=== PATIENT | female | born 1970 | race Caucasian/White ===

== ENCOUNTER 2019-01-26 18:57 | Observation (INO) | payer SELFPAY ==
[2019-01-26] MEDS ORDERED: Acetaminophen 500 MG TAB ONE (19:13)
[2019-01-26] MEDS ORDERED: Morphine 4 MG/ML VIAL ONE (19:40)
[2019-01-26] MEDS ORDERED: Ondansetron PF 4 MG/2 ML Vial ONE (19:40)
[2019-01-26] MEDS ORDERED: Senokot S 8.6-50 MG TAB PO PRN (21:00)
[2019-01-26] MEDS ORDERED: Sodium Chloride 0.9% 1,000 ML IV SCH (21:01)
[2019-01-26] MEDS ORDERED: Acetaminophen 325 MG TAB PO PRN ×2 (21:01→21:30)
[2019-01-26] MEDS ORDERED: Ondansetron ODT 4 MG TAB SL PRN (21:01)
[2019-01-26] MEDS ORDERED: Ondansetron PF 4 MG/2 ML Vial IVP PRN ×2 (21:01→21:30)
[2019-01-26 21:05] VITALS: BMI 28.5
[2019-01-26] MEDS ORDERED: Ondansetron ODT 4 MG TAB PO PRN (21:30)
[2019-01-26] MEDS ORDERED: Zolpidem Tartrate 5 MG TAB PO PRN (21:30)
[2019-01-26] MEDS ORDERED: HYDROcodone/Acetaminophen 5/325 mg Tablet PO PRN (21:30)
[2019-01-26] MEDS ORDERED: Nitroglycerin 0.4 MG TAB (25 Tab Bottle) PO PRN (21:30)
[2019-01-26] MEDS ORDERED: Bisacodyl 10 MG SUPP PR PRN (21:30)
[2019-01-26] MEDS ORDERED: Loperamide HCl 2 MG CAP PO PRN (21:30)
[2019-01-26] MEDS: Nitroglycerin 2% Ointment 1 INCH/1 GM Packet TOP SCH (22:13)
[2019-01-27] MEDS ORDERED: Lorazepam 1 MG TAB PO PRN (01:26)
--- NOTE | 2019-01-27 02:01 | HP ---
PRIMARY CARE PHYSICIAN: Dr. Talita Langston. The patient is seen and examined on the day of 01/26/2019. REASON FOR ADMISSION: Chest pain. HISTORY OF PRESENT ILLNESS: A 48-year-old female, who has underlying history of untreated hypertension. The patient was experiencing chest pain. The patient was complaining of chest pain, which was right-sided as well as across the chest. It was radiating to arm. The patient was apprehensive. The patient got anxious. The patient did not have any associated nausea, vomiting, but she was feeling uncomfortable and that is why she made an appointment with the primary care physician. Over there, the patient's blood pressure was very high in 190s, and that is why primary care physician called paramedics and sent her to emergency room for evaluation. The patient was initially evaluated at [facility], where blood pressure was normal. The patient had routine workup done, which was unremarkable and subsequently, the patient was sent to our emergency room for evaluation. At [facility], the patient was given nitroglycerin patch and Xanax. REVIEW OF SYSTEMS: CONSTITUTIONAL: Negative for weight loss or gain, ability to conduct usual activities. SKIN: Negative for rash, itching. EYES: Negative for double vision, pain. ENT/MOUTH: Negative for nose bleeding, neck stiffness, pain, tenderness. CARDIOVASCULAR: Negative for palpitations, dyspnea on exertion, orthopnea. RESPIRATORY: Negative for shortness of breath, wheezing, cough, hemoptysis, fever or night sweats. GASTROINTESTINAL: Negative for poor appetite, abdominal pain, heartburn, nausea , vomiting, constipation, or diarrhea. GENITOURINARY: Negative for urgency, frequency, dysuria, nocturia. MUSCULOSKELETAL: Negative for pain, swelling. NEUROLOGIC/PSYCHIATRIC: Negative for anxiety, depression. ALLERGY/IMMUNOLOGIC: Negative for skin rash, bleeding tendency. Please see my HPI for pertinent positives and negatives. All other review of systems reviewed and negative except as mentioned in HPI. PAST MEDICAL HISTORY: Untreated hypertension. PAST SURGICAL HISTORY: Tubal ligation. PAST PSYCHIATRIC HISTORY: Anxiety and depression. SOCIAL HISTORY: The patient is . She smokes about a half pack per day. She drinks alcohol socially. She denies any other illicit drug abuse. FAMILY HISTORY: No strong family history of premature coronary artery disease, stroke, or cancer. ALLERGIES: NO KNOWN DRUG ALLERGY. CURRENT HOME MEDICATIONS: The patient is not taking any prescribed or non-prescribed medication. EMERGENCY ROOM COURSE: The patient was given nitroglycerin patch and Xanax. PHYSICAL EXAMINATION: VITAL SIGNS: On arrival, blood pressure 119/74, pulse 70, respiratory rate 18, saturation 99% on room air. Weight 61.2 kg. GENERAL: The patient is currently alert, awake, in no obvious acute distress. HEENT: Head; normocephalic, atraumatic. Eyes; pupils round, reactive to light. Extraocular muscle intact. ENT; oropharynx within normal limits. Moist mucous membranes. No oral lesion. No pharyngeal erythema. No exudate. NECK: Supple. No JVD. No thyromegaly. No carotid bruit. No jugular venous distention. LUNGS: Clear to auscultation without any rhonchi or rales. CARDIAC: S1, S2 regular. No murmur. No gallop. No rub. ABDOMEN: Soft. Bowel sounds present. Nontender. Nondistended. No organomegaly. No mass. No suprapubic tenderness. BACK EXAMINATION: Unremarkable. No CVA tenderness. EXTREMITIES: Upper extremities, passive movement of all joints are normal. Lower extremity, no edema. Good distal pulsation. SKIN: No skin rash. HEMATOLOGICAL SYSTEM: No lymphadenopathy. PSYCHIATRIC: Normal affect. NEUROLOGIC: Nonfocal examination. SIGNIFICANT LABORATORY DATA: CT angiography reported as no evidence of pulmonary embolism. Patchy ground-glass opacity. Chest x-ray based on my review, no acute cardiopulmonary process. CBC, WBC 7.9, hemoglobin 13.0, platelets 279. D-dimer less than BMP, sodium 143, potassium 4.6, chloride 111, carbon dioxide 24, anion gap 13, BUN 11, creatinine 0.70, glucose 94, calcium 8.8. LFT; AST 13 , ALT 12, alkaline phosphatase 62, and albumin 4.0. BNP 14.9. Cardiac enzymes negative x3. ASSESSMENT AND PLAN: 1. Acute chest pain. The patient's chest pain description is atypical, suspecting from uncontrolled hypertension. Her chest pain description could be a part of anxiety neurosis versus related with uncontrolled hypertension. She has smoking history and her age warrants further investigation. Currently, EKG is not showing any ischemic changes and her troponins are negative. Her D-dimer is also negative and her CT angiography is also negative. For benefit of doubt and to complete workup, we will do stress test tomorrow morning. We will check lipid profile for risk stratification. Healthy lifestyle measure discussed with the patient. While in the hospital, we will continue aspirin 325 mg p.o. daily, nitroglycerin patch q.8 hourly and nitroglycerin on p.r.n. basis. 2. Elevated hypertension without any previous history of hypertension. We will monitor blood pressure while in hospital. If needed, we will restart antihypertensive medication while in hospital. 3. Tobacco abuse disorder. Smoking cessation counseling given. Healthy lifestyle measure discussed with the patient. 4. Anxiety disorder. We will continue Ativan 1 mg p.o. q.4 hourly on p.r.n. basis. 5. Deep venous thrombosis prophylaxis is not needed, because we are expecting discharge in 24 hours. 6. Gastrointestinal prophylaxis. Pepcid 20 mg p.o. b.i.d. CODE STATUS: The patient is full code. The patient's is surrogate decision maker. DISPOSITION PLAN: Based on clinical course, we are expecting the patient's stay in hospital is 24 hours. This patient was seen and examined in the emergency room on January 26, 2019. Job ID: [id number] [facility]
[2019-01-27] MEDS: Nitroglycerin 2% Ointment 1 INCH/1 GM Packet TOP SCH ×2 (05:23→13:31)
[2019-01-27 05:30] LABS: Cardiac Risk 2.4 (Less than 4.5)
[2019-01-27] MEDS ORDERED: Aspirin 325 mg Enteric Coated Tablet PO SCH (09:00)
[2019-01-27] MEDS ORDERED: Famotidine 20 MG TAB PO SCH (09:00)
--- NOTE | 2019-01-27 14:31 | NM ---
MYOCARDIAL PERFUSION EVALUATION: INDICATION: History of chest pain, hypertension, and smoking. COMPARISON: None. RADIOPHARMACEUTICAL: 27 mCi Technetium 99m sestamibi with stress and 10.5 mCi Technetium 99m sestamibi IV with rest. FINDINGS: No reversible myocardial perfusion defect is evident. The estimated LVEF is 68%. There is normal wa ll motion and thickening. IMPRESSION: Normal myocardial perfusion evaluation. POS: JODEE
[2019-01-27 16:37] VITALS: BP 151/83; TEMP 98.1
== END 2019-01-27 17:46 | disposition home or self-care (01) ==
LOC: ERS 18:57 → 2SW 19:27
PROVIDERS: ADMIT Emergency Medicine; ATTEND Emergency Medicine
DX: R07.89 Other chest pain (principal); I10 Essential (primary) hypertension; F41.8 Other specified anxiety disorders; F32.9 Major depressive disorder, single episode, unspecified; F17.210 Nicotine dependence, cigarettes, uncomplicated
CPT/HCPCS: 36415; 78452; 80061; 93005; 93017; 96374; 96375; A9500; G0378; J2270; J2405